=== PATIENT | female | born 1950 | race Caucasian/White ===

== ENCOUNTER 2024-02-03 08:39 | Day surgery (SDC) | payer BC ==
[~2024-02-03] VITALS: Ht 149.9 cm; Wt 53.5 kg
[2024-02-03] MEDS ORDERED: fentaNYL CITRATE/PF 100 MCG/2 ML AMP ONE (10:29)
[2024-02-03] MEDS ORDERED: MIDAZOLAM HCL 5 MG/5 ML VIAL ONE ×2 (10:30→12:29)
[2024-02-03 12:51] VITALS: BP_SYST 112; PULSE 91; RESP 16; TEMP 98.6; O2SAT 100
== END 2024-02-03 12:25 | disposition home or self-care (01) ==
LOC: SDS 08:39 → SMU 08:43 → SDS 12:25
PROVIDERS: ATTEND Student in an Organized Health Care Education/Training Program
DX: D64.9 Anemia, unspecified (principal); D12.0 Benign neoplasm of cecum; D12.4 Benign neoplasm of descending colon; R12 Heartburn; K21.9 Gastro-esophageal reflux disease without esophagitis; K64.8 Other hemorrhoids; K64.4 Residual hemorrhoidal skin tags; I10 Essential (primary) hypertension; E78.5 Hyperlipidemia, unspecified; J44.9 Chronic obstructive pulmonary disease, unspecified; G47.30 Sleep apnea, unspecified; I25.2 Old myocardial infarction; M19.90 Unspecified osteoarthritis, unspecified site; Z90.710 Acquired absence of both cervix and uterus; Z90.3 Acquired absence of stomach [part of]; Z98.890 Other specified postprocedural states; Z87.891 Personal history of nicotine dependence; Z79.899 Other long term (current) drug therapy
CPT/HCPCS: 45385; 43239; 99152; 88305; 88312; 88313; 99153; G0378; J2250; J3010